=== PATIENT | female | born 1970 | race African-American/Black ===

== ENCOUNTER 2018-03-30 16:27 | Emergency (ER) | payer OTHER ==
[~2018-03-30] VITALS: Ht 167.6 cm; Wt 65.8 kg
--- NOTE | ~2018-03-30 | EKG ---
[address] [address] ELECTROCARDIOGRAM REPORT Name: FELICIA BECERRAHOLLIE OTILIO Room #: [facility]ALSam[facility] [id number] Admission: 03/30/18 Attend Phys: Discharge: 03/30/18 Date of : 70 Report #: [id number] THIS REPORT FOR: //name// [facility] ED Test Date: 2018-03-30 Test Time: 17:37:19 Pat Name: HOLLIE BECERRA Department: Room: Gender: F Pre K Teacher: LEONIDAS : 1970 Requested By: Renuka Gonzalez Order Number: [id number] MD: Trever oPsey Measurements Intervals Drifting Rate: 90 P: 71 NV: 143 QRS: 21 QRSD: 92 T: 42 QT: 357 QTc: 437 Interpretive Statements Sinus rhythm Compared to ECG 10/15/2013 10:49:21 No significant changes Electronically Signed On 03-31-2018 8:20:38 CDT by Trever Posey [email or web address] <ELECTRONICALLY SIGNED> By: Trever Posey MD 03/31/18 0820 1737 1737 Trever Posey MD /H[place]DEN
[~2018-03-30 16:27] MED LIST: ALBUTEROL2.5 MG/0.5; IBUPROFEN 600600 M1 PO; NORCO 5-325 TA1 EACH PO; PREDNISONE 20 M20 M1 PO; TESSALON PERLE100 MG PO; VENTOLIN HFA 1818 GM; ZPAK PO
[2018-03-30 17:19] LABS: ABSOLUTE NEUTROPHILS 5.8 thou/uL (1.4-8.2); BASOPHILS 0.2 % (0.0-2.0); EOSINOPHILS 0.5 % (0.0-3.0); HEMATOCRIT 40.8 % (37.0-47.0); LYMPHOCYTES 10.3 % (24.0-44.0); MCH 31.7 pg (26.0-34.0); MCHC 34.4 g/dL (28.0-37.0); MCV 92.2 fL (80.0-100.0); MONOCYTES 4.8 % (1.0-8.0); PLATELET COUNT 300 thou/uL (150-400); POLYS 84.2 % (36.0-66.0); RBC 4.42 mil/uL (4.20-5.00); RDW 14.9 % (10.5-14.5); WBC 6.9 thou/uL (4.0-11.0)
[2018-03-30 17:34] LABS: CALCIUM 9.2 mg/dL (8.5-10.1); CREATININE 0.9 mg/dL (0.6-1.0); POTASSIUM 3.8 mmol/L (3.5-5.1)
[2018-03-30] MEDS ORDERED: IBUPROFEN 600600 M1 PO (18:04)
[2018-03-30] MEDS ORDERED: VENTOLIN HFA 1818 GM INH (18:04)
[2018-03-30] MEDS ORDERED: FLONASE 0.05%50 MCG NASAL (18:04)
[2018-03-30 18:15] VITALS: BP 110/75
== END 2018-03-30 18:17 | disposition home or self-care (01) ==
LOC: ER 16:27
PROVIDERS: Physician Assistant
DX: J06.9 Acute upper respiratory infection, unspecified (principal); J40 Bronchitis, not specified as acute or chronic; J98.01 Acute bronchospasm; F17.210 Nicotine dependence, cigarettes, uncomplicated; Z88.5 Allergy status to narcotic agent